=== PATIENT | male | born 1975 | race Caucasian/White ===

== ENCOUNTER 2017-02-27 21:19 | Emergency (ER) | payer MEDICARE ==
[2017-02-27] MEDS ORDERED: DIPHTH,PERTUSS(ACELL),TET VAC 0.5 ML VIAL IM ONE ×2 (21:58→21:59)
[2017-02-27] MEDS ORDERED: LIDOCAINE HCL 20 ML VIAL ONE (22:30)
--- NOTE | 2017-02-27 22:48 | ERNOTE ---
Upper Extremity HPI - General Extremities Pain Location: thumb: left Time Seen by Provider: 02/27/17 22:30 Source: patient Exam Limitations: no limitations - Immun/Allergies/Home Medications Immunizations: IMMUNIZATION HX Immunizations Up to Date No History of Influenza Vaccine No Allergies/Adverse Reactions: Allergies Allergy/AdvReac Type Severity Reaction Status Date / Time Sulfa (Sulfonamide Allergy Severe flushing Verified 02/27/17 21:48 Antibiotics) [Sulfa(Sulfonamide Antibiotics)] tramadol AdvReac Verified 02/27/17 21:48 Home Medications: HOME MEDICATIONS NK [No Home Medication] 02/27/17 [Last Taken Unknown] - History of Present Illness Narrative: pt was doing a "project" and accidentally cut his right thumb Occurred: just prior to arrival Location of Incident: home Severity: mild Method of Injury: Reports: incised Other Injuries: Reports: none Review of Systems - Review of Systems Constitutional: Present: no symptoms reported EYE: Present: no symptoms reported ENT: Present: no symptoms reported Respiratory: Present: no symptoms reported Musculoskeletal: Present: See HPI. Absent: joint pain, joint swelling Skin: Present: See HPI. Absent: rash Neurological: Present: tingling - slight Endocrine: Present: no symptoms reported Hematologic/Lymphatic: Absent: easy bruising, easy bleeding Psych: Present: no symptoms reported - Patient's Past Medical History Patient History - Medical: No pertinent hx Patient History - Cardiac/Respiratory: No pertinent hx Patient History - Cancer: No Hx of Cancer Patient History - Surgical Procedures: Other Patient History - Other: None - Social History Living Situations: home Psych History: Hx of Anxiety, Hx of Depression Smoking Status: Current every day smoker Patient requests Smoking Cessation Consult: No Initiate information on Smoking Cessation: No Alcohol Use: rarely Drug Use: none - Immunizations Immunizations Up to Date: No History of Influenza Vaccine: No Physical Exam - Physical Exam General Appearance: Present: wd/wn, alert, no apparent distress Neck: Present: normal inspection, full range of motion Respiratory: Present: no respiratory distress, no accessory muscle use Peripheral Pulses: N=norm/S=strong/W=weak/B=bound/A=absent: Radial (R): Normal Extremity Exam: Present: normal range of motion. Absent: bony tenderness Neurological Exam: Present: alert, oriented, normal mood/affect Skin Exam: Present: other - right thumb medial surface 2 cm long laceration approx 1 cm wide. ED Progress - Vital Signs Vital Signs: Vital Signs 02/27/17 21:45 Temperature 36.7 C Pulse Rate 81 Respiratory 18 Rate Blood Pressure 134/76 O2 Sat by Pulse 97 Oximetry - Progress/Reassessment Chief Complaint: Upper Extremity Injury/Problem Procedures Right 1st Digit Length of Repair/Wound (cm): 2 - approx 7mm wide Wound's Depth/Shape: other - full thickness removal of the area of the wound Wound Explored: clean Distal NVT: neuro/vasc intact, no tendon injury Wound Repaired With: other - unable to pull the wound together due to the surface area missing. Surgicell applied to stop bleeding and checked 30 min later with good hemostasis Estimated blood loss (ml): 20 Wound Dressing: sterile dressing applied Complications: Pt tawnya procedure well Departure Clinical Impression: Laceration of thumb Qualifiers: Encounter type: initial encounter Damage to nail status: without damage Foreign body presence: without foreign body Laterality: right Qualified Code(s) : S61.011A - Laceration without foreign body of right thumb without damage to nail, initial encounter - Departure Disposition: Home self-care Condition: Good Instructions: Nonsutured Laceration Care Additional Instructions: Take todays bandage in 24 hours and keep a bandage on consistently for 3-5 days. Wash wound twice a day with soap and water after changing the bandage tomorrow. See your primary care provider if not healing well.
[2017-02-27 23:37] VITALS: BP 120/66
== END 2017-02-27 23:35 | disposition home or self-care (01) ==
LOC: ER 21:19
DX: F17.200 Nicotine dependence, unspecified, uncomplicated (principal); S61.011A Laceration without foreign body of right thumb without damage to nail, initial encounter; W45.8XXA Other foreign body or object entering through skin, initial encounter; Y93.89 Activity, other specified; Y92.009 Unspecified place in unspecified non-institutional (private) residence as the place of occurrence of the external cause